=== PATIENT | female | born 1955 | race African-American/Black ===

== ENCOUNTER 2016-10-02 09:52 | Emergency (ER) | payer OTHER ==
[2016-10-02 09:58] VITALS: BP 126/74; PULSE 94; TEMP 98; BMI 26.5
--- NOTE | 2016-10-02 11:08 | PDOC ---
History of Present Illness - General Chief Complaint: Back Pain Stated Complaint: PAIN Time Seen by Provider: 10/02/16 10:34 History Source: Patient - History of Present Illness Occurred: reports: other Pain Location: reports: back Past History - Past Medical History Allergies/Adverse Reactions: Allergies Allergy/AdvReac Type Severity Reaction Status Date / Time ibuprofen Allergy Intermediate Elevated Verified 10/02/16 09:58 Blood Pressure Home Medications: Ambulatory Orders Ranitidine HCl [Zantac] 150 mg PO BID #0 tablet 08/04/13 Montelukast Na [Singulair -] 10 mg PO HS 10/25/15 Acetaminophen [Tylenol] 650 mg PO Q6H #30 tablet 10/02/16 Oxycodone HCl/Acetaminophen [Percocet 5-325 mg Tablet] 1 tab PO Q4H #15 tablet MDD 4 10/02/16 Anemia: No Asthma: No Cancer: No Cardiac Disorders: No CVA: No COPD: No CHF: No Dementia: No Diabetes: No GI Disorders: Yes (REFLUX,GASTRITIS,HIATAL HERNIA,POLYPS STOMACH,STOMACH ULCER) Disorders: No HTN: No Hypercholesterolemia: No Liver Disease: No Seizures: No Thyroid Disease: No - Surgical History Abdominal Surgery: No Appendectomy: Yes (EGD,COLONOSCOPY) Cardiac Surgery: No Cholecystectomy: No Lung Surgery: No Neurologic Surgery: No Orthopedic Surgery: No - Psycho/Social/Smoking Cessation Hx Suicidal Ideation: No Smoking Status: No Smoking History: Never smoked Number of Cigarettes Smoked Daily: 0 Information on smoking cessation initiated: No Hx Alcohol Use: No Drug/Substance Use Hx: No Substance Use Type: None Hx Substance Use Treatment: No Review of Systems - Review of Systems Constitutional: No: Chills, Fever Respiratory: Yes: Cough. No: Shortness of Breath, Hemoptysis Cardiac (ROS): No: Chest Pain Musculoskeletal: Yes: Back Pain Neurological: No: Numbness, Tingling, Weakness *Physical Exam - Vital Signs Last Vital Signs Temp Pulse Resp BP Pulse Ox 98 F 94 H 18 126/74 97 10/02/16 09:54 10/02/16 09:54 10/02/16 09:54 10/02/16 09:54 10/02/16 09:54 - Physical Exam General Appearance: Yes: Appropriately Dressed. No: Apparent Distress HEENT: positive: Normal Voice Neck: positive: Supple Respiratory/Chest: positive: Lungs Clear, Normal Breath Sounds. negative: Respiratory Distress Cardiovascular: positive: Regular Rate, S1, S2 Gastrointestinal/Abdominal: positive: Soft. negative: Tender Musculoskeletal: negative: CVA Tenderness, Vertebral Tenderness Extremity: positive: Normal Inspection Integumentary: positive: Dry, Warm Neurologic: positive: Fully Oriented, Alert, Normal Mood/Affect Medical Decision Making - Medical Decision Making 10/02/16 11:08 60 yo F, GERD, gastric ulcer, PNA, p/w lower back pain. Pt states she awoke with pain 2 days ago, located to L lower back, tight w/ an intensity of 7/10, worse w/ bending. No radiation, LE weakness, saddle anesthesia or b/b incontinence. No dysuria, hematuria, nausea, vomiting, fever or chills. No history of kidney stone. Denies trauma. Not taking anything for pain. Pt also c/o nonproductive cough 1 week. No hemoptysis, shortness of breath, fever or chills See exam Atraumatic lower back pain No red flags i.e cauda equina, infection, etc M/l MSK -pain control in ED>reassess Cough VSS Chest/lungs clear -otc cough meds as needed 10/02/16 11:48 10/02/16 12:19 Pain improved with meds. Patient stable for discharge at this time. Instructed to follow-up with PMD if pain persists *DC/Admit/Observation/Transfer Diagnosis at time of Disposition: Low back pain Qualifiers: Chronicity: acute Back pain laterality: left Sciatica presence: without sciatica Qualified Code(s): M54.5 - Low back pain - Discharge Dispostion Disposition: HOME Condition at time of disposition: Improved - Prescriptions Prescriptions: Oxycodone HCl/Acetaminophen [Percocet 5-325 mg Tablet] 1 tab PO Q4H #15 tablet MDD 4 Acetaminophen [Tylenol] 650 mg PO Q6H #30 tablet - Referrals Referrals: Chacorta Cast MD [Primary Care Provider] - - Patient Instructions Printed Discharge Instructions: Low Back Pain Additional Instructions: Take medications as directed and if your pain continues, please follow up with your PMD
[2016-10-02] MEDS ORDERED: OXYCODONE/APAP 5/325MG COMBO TABLET PO ONE (11:44)
[2016-10-02] MEDS ORDERED: OXYCODONE/APAP 5/325MG COMBO TABLET ONE (11:51)
== END 2016-10-02 12:23 | disposition home or self-care (01) ==
LOC: JERFT 09:52
DX: M54.5 Low back pain (principal); Z87.19 Personal history of other diseases of the digestive system
CPT/HCPCS: 99281-25

== ENCOUNTER 2018-07-05 11:37 | Emergency (ER) | payer OTHER ==
[2018-07-05 11:46] VITALS: BMI 21.9
[2018-07-05] MEDS ORDERED: ACETAMINOPHEN 1000 MG/100 ML VIAL (NON FORMULARY) IVPB ONE (12:01)
[2018-07-05] MEDS ORDERED: SODIUM CHLORIDE 1,000 ML IV STA (12:01)
[2018-07-05] MEDS ORDERED: ACETAMINOPHEN INJECTION 100 ML IVPB ONE (12:18)
[2018-07-05 12:22] LABS: URINE APPEARANCE CLEAR; URINE BILIRUBIN NEGATIVE (<2.0 mg/dL); URINE COLOR YELLOW; URINE GLUCOSE (UA) 2+ (NEGATIVE); URINE KETONE TRACE (NEGATIVE); URINE LEUK ESTERASE NEGATIVE (NEGATIVE); URINE NITRITE NEGATIVE (NEGATIVE); URINE PROTEIN 1+ (NEGATIVE); URINE UROBILINOGEN NEGATIVE mg/dL (0.2-1.0)
[2018-07-05 12:25] LABS: BASO % 0.6 % (0-2.0); EOS % 0.1 % (0-4.5); HEMATOCRIT 36.3 % (32.4-45.2); HEMOGLOBIN 11.7 GM/dL (10.7-15.3); LYMPH % 5.9 % (8-40); MCH 28.6 pg (25.7-33.7); MCHC 32.3 g/dl (32.0-36.0); MEAN CELL VOLUME 88.6 fl (80-96); MEAN PLT VOLUME 9.6 fl (7.5-11.1); MONO % 5.2 % (3.8-10.2); NEUT % 88.2 % (42.8-82.8); PLATELET COUNT 195 K/MM3 (134-434); RDW 13.5 % (11.6-15.6); WHITE BLOOD COUNT 13.5 K/mm3 (4.0-10.0)
[2018-07-05 12:43] LABS: ALBUMIN 3.2 g/dl (3.4-5.0); ALK PHOS 88 U/L (45-117); ANION GAP 7 MMOL/L (8-16); BILIRUBIN,TOTAL 0.8 mg/dL (0.2-1); BLOOD UREA NITROGEN 9 mg/dL (7-18); CALCIUM 8.6 mg/dL (8.5-10.1); CHLORIDE 105 mmol/L (98-107); CO2 28 mmol/L (21-32); GLUCOSE,RANDOM 185 mg/dL (74-106); POTASSIUM 3.6 mmol/L (3.5-5.1); SGOT/AST 28 U/L (15-37); SGPT/ALT 34 U/L (13-61); SODIUM 140 mmol/L (136-145); TOT PROT 7.6 g/dl (6.4-8.2)
[2018-07-05 12:54] LABS: EPI CELLS RARE /HPF (FEW); URINE MUCUS MANY
--- NOTE | 2018-07-05 13:16 | PDOC ---
History of Present Illness - General Chief Complaint: SIRS, Suspected/Possible Stated Complaint: CHEST PAIN, FEVER Time Seen by Provider: 07/05/18 11:54 History Source: Patient Exam Limitations: No Limitations - History of Present Illness Initial Comments: CHIEF COMPLAINT: 62 y/o female c/o fever and cough x 5 days. HISTORY OF PRESENT ILLNESS: The patient states for the past 5 days she's had a fever and chills with a dry cough and chest pain. She has been taking tylenol with last dose at approximately 4am this morning. She denies earache, sore throat, runny nose, n/v/d, abd pain, back pain, hematuria, dysuria, sick contacts, recent travel. Vital signs on arrival are notable for pulse of 98 and respiratory rate of 32. REVIEW OF SYSTEMS: GENERAL/CONSTITUTIONAL: Subjective fever/chills. + weakness. No weight change. HEAD, EYES, EARS, NOSE AND THROAT: No change in vision. No ear pain or discharge. No sore throat. CARDIOVASCULAR: + chest pain or shortness of breath. RESPIRATORY: +dry cough. No wheezing or hemoptysis. GASTROINTESTINAL: No nausea, vomiting, diarrhea. GENITOURINARY: No dysuria, frequency, or change in urination. MUSCULOSKELETAL: No joint or muscle swelling or pain. No neck or back pain. SKIN: No rash or easy bruising. NEUROLOGIC: No headache, vertigo, loss of consciousness, or loss of sensation. PHYSICAL EXAM: GENERAL: The patient is awake, alert, and fully oriented, non toxic but ill appearing, with laryngitis and dry cough. HEAD: Normal with no signs of trauma. ENT: Pupils equal, round and reactive to light, extraocular movements intact, sclera anicteric, conjunctiva clear. Neck supple. LUNGS: decreased breath sound right lower field. No wheezing. Normal excursion. No respiratory distress or use of accessory muscles. CV: Tachycardia with regular rate, S1/S2, no MRG. Cap refill < 2 sec. ABDOMEN: Soft, non-distended, non-tender even to deep palpation, no hepatomegaly or splenomegaly, no masses. EXTREMITIES: Normal range of motion, no edema. NEUROLOGICAL: Normal speech, normal gait. CN II-XII grossly intact. SKIN: Warm, dry, normal turgor, no rashes or lesions noted. Past History - Past Medical History Allergies/Adverse Reactions: Allergies Allergy/AdvReac Type Severity Reaction Status Date / Time ibuprofen Allergy Intermediate Elevated Verified 07/05/18 11:44 Blood Pressure Home Medications: Ambulatory Orders Ranitidine HCl [Zantac] 150 mg PO BID #0 tablet 08/04/13 Montelukast Na [Singulair -] 10 mg PO HS 10/25/15 Acetaminophen [Tylenol] 650 mg PO Q6H #30 tablet 10/02/16 Albuterol 0.083% Nebulizer Nisreen [Ventolin 0.083% Nebulizer Soln -] 1 neb NEB Q4H #25 vial 07/05/18 Albuterol Sulfate Inhaler - [Ventolin Hfa Inhaler -] 1 - 2 inh PO QID 07/05/18 Levofloxacin [Levaquin] 750 mg PO DAILY #5 tablet 07/05/18 Nebulizer [Aeroeclipse II] 1 each MC Q4H #1 each 07/05/18 Anemia: No Asthma: No Cancer: No Cardiac Disorders: No CVA: No COPD: No CHF: No Dementia: No Diabetes: No GI Disorders: Yes (REFLUX,GASTRITIS,HIATAL HERNIA,POLYPS STOMACH,STOMACH ULCER) Disorders: No HTN: No Hypercholesterolemia: No Liver Disease: No Seizures: No Thyroid Disease: No - Surgical History Abdominal Surgery: No Appendectomy: Yes (EGD,COLONOSCOPY) Cardiac Surgery: No Cholecystectomy: No Lung Surgery: No Neurologic Surgery: No Orthopedic Surgery: No - Suicide/Smoking/Psychosocial Hx Smoking Status: No Smoking History: Never smoked Number of Cigarettes Smoked Daily: 0 Hx Alcohol Use: No Drug/Substance Use Hx: No Substance Use Type: None Hx Substance Use Treatment: No *Physical Exam - Vital Signs Last Vital Signs Temp Pulse Resp BP Pulse Ox 99.4 F 98 H 32 H 121/73 98 07/05/18 12:13 07/05/18 11:45 07/05/18 11:45 07/05/18 11:45 07/05/18 11:45 Heart Score/ECG Review - ECG Intrepretation Comment:: Twelve-lead EKG was performed and reviewed by Dr. Guo. There is normal sinus rhythm with a normal rate. The axis is normal. The intervals are normal. Nonspecific ST and T wave abnormality Impression: Abnormal twelve-lead EKG ED Treatment Course - LABORATORY CBC & Chemistry Diagram: 07/05/18 12:00 07/05/18 12:00 - ADDITIONAL ORDERS Additional order review: Laboratory Results 07/05/18 07/05/18 07/05/18 12:00 12:00 12:00 Sodium 140 Potassium 3.6 Chloride 105 Carbon Dioxide 28 Anion Gap 7 L BUN 9 Creatinine 1.0 Creat Clearance w eGFR 56.18 Random Glucose 185 H Calcium 8.6 Total Bilirubin 0.8 AST 28 ALT 34 Alkaline Phosphatase 88 Creatine Kinase 340 H Creatine Kinase Index 0.6 CK-MB (CK-2) 2.3 Troponin I < 0.02 Total Protein 7.6 Albumin 3.2 L Urine Color Yellow Urine Appearance Clear Urine pH 5.0 Ur Specific Sanders 1.014 Urine Protein 1+ H Urine Glucose (UA) 2+ H Urine Ketones Trace H Urine Blood Negative Urine Nitrite Negative Urine Bilirubin Negative Urine Urobilinogen Negative Ur Leukocyte Esterase Negative 07/05/18 12:00 RBC 4.10 MCV 88.6 MCHC 32.3 RDW 13.5 MPV 9.6 Neutrophils % 88.2 H Lymphocytes % 5.9 L Monocytes % 5.2 Eosinophils % 0.1 D Basophils % 0.6 D - RADIOLOGY Radiology Studies Ordered: Category Date Time Status CHEST X-RAY PORTABLE* [RAD] Stat Radiology 07/05/18 11:54 Completed - Medications Given in the ED: ED Medications Discontinued Medications Generic Name Dose Route Start Last Admin Trade Name Freq PRN Reason Stop Dose Admin Acetaminophen 1,000 mg 07/05/18 12:01 07/05/18 12:29 Ofirmev Injection - IVPB 07/05/18 12:02 1,000 mg ONCE ONE Administration Sodium Chloride 1,000 mls @ 1,000 mls/hr 07/05/18 12:01 07/05/18 12:29 Normal Saline - IV 07/05/18 13:00 1,000 mls/hr ASDIR STA Administration Medical Decision Making - Medical Decision Making A/P: 62 y/o female with signs and symptoms of pneumonia. Also concerned for flu. Plan is as follows: 1. sepsis work up 2. Flu swab 3. IV fluids 4. IV ofirmev 5. Duoneb CXR IMPRESSION: No acute pathology. No change from prior of 06/24/18 Influenza A&B - negative Labs indicate a bacterial infection. Lactic acid normal Patient sounds and states she feels much better after duoneb treatments Patient admits she has had pneumonia in the past and this is what it feels like to her. Curb 65 1 points Low risk group: 2.7% 30-day mortality. Consider outpatient treatment. Patient's vitals have improved She is no longer tachycardic or febrile She feels better and requests to go home. She lives with her and states she can f/u with her PCP, Dr. Boudreaux on sunday Spoke with Dr. Boudreaux's nurse financial manager and she informs me that the patient can come to the office on Sunday for follow up. Discussed the case with Dr. Castaneda and she is ok with sending the patient home. Will d/c to home with rx for levaquin, nebulizer and albuterol. Instructed the patient to continue taking tylenol every 4 hours for fever if needed. Instructed her to drink plenty of fluids and get lots of rest. Informed her Dr. Boudreaux can see her on Sunday and strongly encouraged her to go. Instructed her to return to the ER immediately if she develops any worsening or concerning symptoms, including but not limited to: worsened shortness of breath, chest pain , fever that won't come down with tylenol, weakness. The patient verbalizes understanding of all instructions, has no further questions and is awaiting discharge. *DC/Admit/Observation/Transfer Diagnosis at time of Disposition: Pneumonia Qualifiers: Pneumonia type: due to unspecified organism Laterality: right Lung location: lower lobe of lung Qualified Code(s): J18.1 - Lobar pneumonia, unspecified organism - Discharge Dispostion Disposition: HOME Condition at time of disposition: Improved - Referrals Referrals: Bob Boudreaux [Non Staff, Medical] - (Go to the office on Sunday for follow up) - Patient Instructions Printed Discharge Instructions: DI for Pneumonia -- Adult Additional Instructions: Discharge Instructions: -You have pneumonia -A prescription for antibiotics has been sent to your pharmacy -You may still get fevers for the next few days; please take 650mg of tylenol every 4 hours for fever -A prescription for a nebulizer has also been sent to your pharmacy; please use this for cough -Please try not to speak. Rest your voice as much as possible -Drink plenty of fluids -Get lots of rest -Please go to Dr. Boudreaux's office on Sunday for a follow up appointment -Return to the ER immediately with any worsening or concerning symptoms including fevers that won't go down with Tylenol, difficulty breathing or worsening of chest pain - Post Discharge Activity
[2018-07-05] MEDS ORDERED: ALBUTEROL SO4 2.5/IPRATROPIUM 0.5 INH SOL 3 ML VIAL.NEB. NEB ONE ×2 (13:24→13:53)
[2018-07-05 13:35] LABS: INR 1.26 (0.83-1.09); PROTHROMBIN TIME (PATIENT) 14.9 SEC (9.7-13.0)
[2018-07-05] MEDS: ALBUTEROL SO4 2.5/IPRATROPIUM 0.5 INH SOL 3 ML VIAL.NEB. NEB SCH ×4 (13:42→15:23)
[2018-07-05 18:21] VITALS: BP 123/72; PULSE 89; TEMP 98.2
--- NOTE | 2018-07-06 10:30 | EKG ---
Test Reason : Blood Pressure : / mmHG Vent. Rate : 089 BPM Atrial Rate : 089 BPM P-R Int : 112 ms QRS Dur : 078 ms QT Int : 368 ms P-R-T Axes : 048 018 -09 degrees QTc Int : 447 ms NORMAL SINUS RHYTHM LOW VOLTAGE QRS NONSPECIFIC ST AND T WAVE ABNORMALITY ABNORMAL ECG NO PREVIOUS ECGS AVAILABLE Confirmed by GEORGE BROWN MD ([id number]) on 07/06/2018 10:30:05 AM Referred By: Confirmed By:GEORGE BROWN MD
== END 2018-07-05 18:15 | disposition home or self-care (01) ==
LOC: JER 11:37
PROC: 3E0F7GC Introduction of Other Therapeutic Substance into Respiratory Tract, Via Natural or Artificial Opening (ICD-10-PCS; principal; 2018-07-05)
PROC: 3E0F7GC Introduction of Other Therapeutic Substance into Respiratory Tract, Via Natural or Artificial Opening (ICD-10-PCS; 2018-07-05)
PROC: 3E0F7GC Introduction of Other Therapeutic Substance into Respiratory Tract, Via Natural or Artificial Opening (ICD-10-PCS; 2018-07-05)
PROC: 3E0F7GC Introduction of Other Therapeutic Substance into Respiratory Tract, Via Natural or Artificial Opening (ICD-10-PCS; 2018-07-05)
DX: J18.1 Lobar pneumonia, unspecified organism (principal)
CPT/HCPCS: 36415; 71045-TC-FY; 71046-TC-FY; 80053; 81003; 81015; 82550; 82553; 83605; 84484; 85025; 85610; 87040; 87086; 87804; 93005; 93010; 94640; 96365; 96375; 99284-25; J0131; J7030; J7620

== ENCOUNTER 2019-11-26 14:03 | Emergency (ER) | payer OTHER ==
[2019-11-26 14:30] VITALS: BMI 21.0
[2019-11-26] MEDS ORDERED: SODIUM CHLORIDE 1,000 ML IV STA (14:40)
--- NOTE | 2019-11-26 14:43 | PDOC ---
History of Present Illness - General Chief Complaint: Weakness Stated Complaint: R/O PNE Time Seen by Provider: 11/26/19 14:22 History Source: Patient Exam Limitations: No Limitations - History of Present Illness Initial Comments: Javed Acuna is a 64 yo F w a hx of gastritis, childhood asthma, GERD, abdominal hernia, and PUD who presents to the [facility] er sent in by her PCP to have pneumonia ruled out. She has been experiencing a dry cough over the past few days which has been non-productive. The patient states she has had on and off fevers and chills for the past few days. Last night she took acetaminophen for her fever but has not taken any antipyretics today. She also endorses a right sided headache which started yesterday. Lastly, the patient endorses worsening shortness of breath with exertion over the past week. She is particularly concerned because performing any physical activity over the past week, especially walking up stairs, is extremely tiresome for her. This dyspnea and fatigue on exertion is what prompted the patient to come to the ER. She denies difficulty lying flat at night and denies having any leg swelling. She denies having any chest pain and denies a productive cough. PCP: Chacorta Cast PSH: Appendectomy Social Hx: Denies smoking, drinking, or other substance usage Allergies: NSAIDs Past History - Past Medical History Allergies/Adverse Reactions: Allergies Allergy/AdvReac Type Severity Reaction Status Date / Time ibuprofen Allergy Intermediate Elevated Verified 11/26/19 14:26 Blood Pressure Home Medications: Ambulatory Orders Ranitidine HCl [Zantac] 150 mg PO BID #0 tablet 08/04/13 Montelukast Na [Singulair -] 10 mg PO HS 10/25/15 Acetaminophen [Tylenol] 650 mg PO Q6H #30 tablet 10/02/16 Albuterol 0.083% Nebulizer Nisreen [Ventolin 0.083% Nebulizer Soln -] 1 neb NEB Q4H #25 vial 07/05/18 Albuterol Sulfate Inhaler - [Ventolin Hfa Inhaler -] 1 - 2 inh PO QID 07/05/18 Levofloxacin [Levaquin] 750 mg PO DAILY #5 tablet 07/05/18 Nebulizer [Aeroeclipse II] 1 each MC Q4H #1 each 07/05/18 Anemia: No Asthma: No Cancer: No Cardiac Disorders: No CVA: No COPD: No CHF: No Dementia: No Diabetes: No GI Disorders: Yes (REFLUX,GASTRITIS,HIATAL HERNIA,POLYPS STOMACH,STOMACH ULCER) Disorders: No HTN: No Hypercholesterolemia: No Liver Disease: No Seizures: No Thyroid Disease: No - Surgical History Abdominal Surgery: No Appendectomy: Yes (EGD,COLONOSCOPY) Cardiac Surgery: No Cholecystectomy: No Lung Surgery: No Neurologic Surgery: No Orthopedic Surgery: No - Psycho Social/Smoking Cessation Hx Smoking Status: No Smoking History: Never smoked Have you smoked in the past 12 months: No Number of Cigarettes Smoked Daily: 0 Information on smoking cessation initiated: No Hx Alcohol Use: No Drug/Substance Use Hx: No Substance Use Type: None Hx Substance Use Treatment: No Review of Systems - Review of Systems Able to Perform ROS?: Yes Comments:: CONSTITUTIONAL: Present: fatigue Absent: fever, no chills EYES: Absent: visual changes ENT: Absent: ear pain, no sore throat CARDIOVASCULAR: Absent: chest pain, no palpitations RESPIRATORY: Present: SOB Absent: cough GI: Absent: abdominal pain, no nausea, no vomiting, no constipation, no diarrhea GENITOURINARY: Absent: dysuria, no frequency, no hematuria MUSKULOSKELETAL: Absent: back pain, no arthralgia, no myalgia SKIN: Absent: rash NEURO: Absent: headache *Physical Exam - Vital Signs Last Vital Signs Temp Pulse Resp BP Pulse Ox 98.1 F 55 L 18 136/44 L 99 11/26/19 14:26 11/26/19 14:26 11/26/19 14:26 11/26/19 14:26 11/26/19 14:26 - Physical Exam GENERAL: Well-appearing, well-nourished. No apparent distress. HEENT: Normocephalic, atraumatic. PERRL, EOM intact. CARDIOVASCULAR: Normal S1, S2. Regular rate and rhythm. PULMONARY: Bi-basilar crackles. No evidence of respiratory distress. ABDOMEN: Soft, non-distended, non-tender. EXTREMITIES: Normal ROM in all four extremities. No gross deformities. SKIN: Warm, dry. No rash NEUROLOGICAL: No focal neurological deficits. Heart Score/ECG Review - History History: Slightly suspicious - Electrocardiogram EKG: Normal - Age Age: 45-65 - Risk Factors Based on the list above the patient has:: No risk factors known - Troponin Troponin: </= normal limit - Score Heart Score - Total: 1 ED Treatment Course - LABORATORY CBC & Chemistry Diagram: 11/26/19 15:30 11/26/19 15:30 - RADIOLOGY Radiology Studies Ordered: Category Date Time Status CHEST PA & LAT [RAD] Stat Radiology 11/26/19 14:40 Ordered Medical Decision Making - Medical Decision Making Javed Acuna is a 64 yo F w a hx of gastritis, childhood asthma, GERD, abdominal hernia, and PUD who presents to the [facility] er sent in by her PCP to have pneumonia ruled out. She has been experiencing a dry cough over the past few days which has been non-productive. The patient states she has had on and off fevers and chills for the past few days. Last night she took acetaminophen for her fever but has not taken any antipyretics today. She also endorses a right sided headache which started yesterday which woke the patient up from sleep. She states this headache is different than her standard headaches. Lastly, the patient endorses worsening shortness of breath with exertion over the past week. She is particularly concerned because performing any physical activity over the past week, especially walking up stairs, is extremely tiresome for her. This dyspnea and fatigue on exertion is what prompted the patient to come to the ER. She denies difficulty lying flat at night and denies having any leg swelling. She denies having any chest pain and denies a productive cough. Vital Signs Temp Pulse Resp BP Pulse Ox 98.1 F 55 L 18 136/44 L 99 11/26/19 14:26 11/26/19 14:26 11/26/19 14:26 11/26/19 14:26 11/26/19 14:26 DDx IBNLT: Heart failure, ACS, electrolyte/metabolic disturbance, PNA, migraine, SAH Plan: Labs, EKG, CXR, CT, re-assess EKG: Sinus bradycardia rate of 46, narrow complexes, normal axis, no hypertrophy, no ST elevations or depressions, Qtc 385, VT 96 Labs: Mildly Elevated BNP POCUS Heart: There is an elevated EPSS of .8 mm consistent with borderline EF. There is a mildly decreased EF and global wall motion hypokinesis. There is no focal wall motion abnormality. Normal LV/RV ratio. Given the large BP differential it is possible this patient has aortic regurgitation which would make the EPSS reading less reliable. Lungs: There are very few B-lines lower lung anderson. No pleural effusions. Overall mildly if at all congested. IVC: Flat and collapsible with each respiration CXR: No acute pathology Head CT: No acute pathology Re-assessment: Patient feels better after symptomatic care. Disposition: Home with PCP, cards, and pulm FU - Strict return precautions. Discharge - Discharge Information Problems reviewed: Yes Clinical Impression/Diagnosis: SOB (shortness of breath) Condition: Improved Disposition: HOME - Admission No - Follow up/Referral Referrals: Chacorta Cast MD [Staff Physician] - Leonel Guzman MD [Staff Physician] - Jonn Lee MD, MD [Staff Physician] - - Patient Discharge Instructions Patient Printed Discharge Instructions: DI for Shortness of Breath Additional Instructions: You came into the ER to make sure you do not have pneumonia. We did a chest x- ray which did not show any signs of pneumonia. You had a small amount of fluid in your lungs which is something you must follow up about with 3 doctors that we are referring you to as an outpatient 1) Tailer In: Dr. Guzman 2) Pulmonary doctor: Jonn Lee 3) Primary doctor: Chacorta Cast Please schedule follow up appointments with all three of these doctors in the next week. Come back to the ER immediately if you are not able to make outpatient appointments with these doctors. If you have any worsening of your chest pain, feel too short of breath, have a fever, or have any other new or worsening concerns come back to the ER for further evaluation as this could mean something dangerous is happening and you might benefit from being hospitalized. Thank you for coming to the [facility] ER. We hope you feel better soon! Print Language: FRISIAN - Post Discharge Activity
[2019-11-26] MEDS ORDERED: ACETAMINOPHEN 1000 MG/100 ML VIAL (NON FORMULARY) IVPB ONE (15:21)
[2019-11-26] MEDS ORDERED: ACETAMINOPHEN INJECTION 100 ML IVPB ONE (15:36)
[2019-11-26 15:42] LABS: EOS % 0.8 % (0-4.5); HEMATOCRIT 38.8 % (32.4-45.2); HEMOGLOBIN 12.5 GM/dL (10.7-15.3); LYMPH % 33.2 % (8-40); MCH 28.9 pg (25.7-33.7); MCHC 32.2 g/dl (32.0-36.0); MEAN CELL VOLUME 89.8 fl (80-96); MEAN PLT VOLUME 9.5 fl (7.5-11.1); MONO % 8.2 % (3.8-10.2); NEUT % 56.8 % (42.8-82.8); PLATELET COUNT 200 K/MM3 (134-434); RBC 4.32 M/mm3 (3.60-5.2); RDW 13.4 % (11.6-15.6); WHITE BLOOD COUNT 5.1 K/mm3 (4.0-10.0)
[2019-11-26 15:57] LABS: INR 1.08 (0.83-1.09); PROTHROMBIN TIME (PATIENT) 12.8 SEC (9.7-13.0)
[2019-11-26] MEDS ORDERED: LACTATED RINGERS SOLUTION 1,000 ML/1,000 ML INFUS.BAG IV STA (15:57)
[2019-11-26 16:14] LABS: EPI CELLS 4.8 /HPF (0-5/HPF); HYALINE CASTS 1 /lpf (0-8); PH,URINE 8.5 (5.0-8.0); URINE APPEARANCE CLEAR; URINE BACTERIA 71.6 /hpf (NEGATIVE); URINE BILIRUBIN NEGATIVE (NEGATIVE); URINE COLOR YELLOW; URINE GLUCOSE (UA) NEGATIVE (NEGATIVE); URINE KETONE NEGATIVE (NEGATIVE); URINE LEUK ESTERASE 1+ (NEGATIVE); URINE NITRITE NEGATIVE (NEGATIVE); URINE PROTEIN NEGATIVE (NEGATIVE); URINE RBC 1 /hpf (0-4); URINE UROBILINOGEN 0.2 mg/dL (0.2-1.0); URINE WBC 5 /hpf (0-5)
[2019-11-26 16:19] LABS: ALBUMIN 3.5 g/dl (3.4-5.0); ALK PHOS 92 U/L (45-117); ANION GAP 5 MMOL/L (8-16); BILIRUBIN,TOTAL 0.4 mg/dL (0.2-1); CHLORIDE 108 mmol/L (98-107); CO2 30 mmol/L (21-32); CREATININE 0.9 mg/dL (0.55-1.3); GLUCOSE,RANDOM 70 mg/dL (74-106); POTASSIUM 4.2 mmol/L (3.5-5.1); SGOT/AST 28 U/L (15-37); SGPT/ALT 32 U/L (13-61); SODIUM 143 mmol/L (136-145); TOT PROT 7.2 g/dl (6.4-8.2)
[2019-11-26] MEDS ORDERED: ALBUTEROL SO4 0.083% IH SOL 2.5 MG/3 ML VIAL.NEB. NEB ONE ×2 (16:49→17:18)
[2019-11-26] MEDS ORDERED: AZITHROMYCIN 250 MG TABLET PO ONE (16:50)
--- NOTE | 2019-11-26 16:50 | PDOC ---
Documentation entered by Michelle Manjarrez SCRIBE, acting as scribe for Chaim Estrada MD. Chaim Estrada MD: This documentation has been prepared by the Loki fragoso Adrianna, SCRIBE, under my direction and personally reviewed by me in its entirety. I confirm that the documentation accurately reflects all work, treatment, procedures, and medical decision making performed by me. Attending Attestation - Resident Resident Name: Norberto Omer - ED Attending Attestation I have performed the following: I have examined & evaluated the patient, The case was reviewed & discussed with the resident, I agree w/resident's findings & plan, Exceptions are as noted - HPI HPI: The patient is a 64 year old female, with a significant PMH of gastritis, childhood asthma, GERD, abdominal hernia, and PUD, presents with cough for a few days. Patient complains of dry cough, with progressively worsening SOB, dyspnea on exertion, and orthopnea. She endorses a right sided KOROMA, subjective fever, and intermittent chills. Patient was sent by her PCP to the ED to rule out pneumonia. Allergies: ibuprofen Surgical History: appendectomy Social History: No toxic habits PCP: Chacorta Cast - Physicial Exam PE: 11/26/19 16:40 EXAMINATION CONSTITUTIONAL: Well-appearing; well-nourished; in no apparent distress HEAD: Normocephalic; atraumatic EYES: PERRL; EOM intact ENMT: External appears normal; normal oropharynx NECK: Supple; non-tender; no cervical lymphadenopathy CARD: Normal S1, S2; no murmurs, rubs, or gallops RESP: Normal chest excursion with respiration; Mild crackles at the bases bilaterally ABD: Soft, non-distended; non-tender; no palpable organomegaly, no palpable hernias EXT: Normal ROM in all four extremities; 1+ pitting edema of lower extremities bilaterally;non-tender to palpation; distal pulses intact SKIN: Warm, dry, no rash NEURO: No focal neurological deficiencies. - Medical Decision Making 11/26/19 16:49 distended she has constricted 64-year-old female presents with cough, abdomen with cough, and congestion shortness of breath, mild headache and generalized weakness. Patient referred to the ER by Dr. Chacorta Chambers for rule out pneumonia. In the ER, patient is awake and alert, nontoxic-appearing. Chest x- ray reveals no evidence of cardiomegaly or significant effusion. CBC/CMP within normal limits. BNP is 199. I suspect atypical pneumonia versus viral infection. Will administer albuterol, will discharge with albuterol MDI and Zithromax with outpatient follow-up.
[2019-11-26] MEDS ORDERED: METOCLOPRAMIDE HCL INJECTION 10 MG/2 ML VIAL IVPUSH ONE (17:01)
[2019-11-26] MEDS ORDERED: AZITHROMYCIN IVPB 500 MG/250 ML BAG IVPB ONE (17:18)
[2019-11-26] MEDS ORDERED: METOCLOPRAMIDE HCL INJECTION 10 MG/2 ML VIAL ONE (17:18)
[2019-11-26] MEDS ORDERED: AZITHROMYCIN 250 MG TABLET ONE (17:19)
[2019-11-26 18:45] VITALS: BP 137/65; PULSE 61; TEMP 97.9
--- NOTE | 2019-11-27 13:58 | EKG ---
Test Reason : Blood Pressure : / mmHG Vent. Rate : 046 BPM Atrial Rate : 046 BPM P-R Int : 096 ms QRS Dur : 080 ms QT Int : 440 ms P-R-T Axes : 036 012 039 degrees QTc Int : 385 ms SINUS BRADYCARDIA WITH SHORT ME CANNOT RULE OUT ANTERIOR INFARCT , AGE UNDETERMINED ABNORMAL ECG WHEN COMPARED WITH ECG OF 05-JUL-2018 11:42, VENT. RATE HAS DECREASED BY 43 BPM QT HAS SHORTENED Confirmed by NANDINI HAGEN, JIGAR ([id number]) on 11/27/2019 1:58:02 PM Referred By: Confirmed By:JIGAR DELATORRE MD
== END 2019-11-26 18:47 | disposition home or self-care (01) ==
LOC: JER 14:03
PROC: 3E033NZ Introduction of Analgesics, Hypnotics, Sedatives into Peripheral Vein, Percutaneous Approach (ICD-10-PCS; principal; 2019-11-26)
PROC: 3E033GC Introduction of Other Therapeutic Substance into Peripheral Vein, Percutaneous Approach (ICD-10-PCS; 2019-11-26)
DX: R06.02 Shortness of breath (principal); K21.9 Gastro-esophageal reflux disease without esophagitis; J45.909 Unspecified asthma, uncomplicated; K27.9 Peptic ulcer, site unspecified, unspecified as acute or chronic, without hemorrhage or perforation; Z88.8 Allergy status to other drugs, medicaments and biological substances
CPT/HCPCS: 36415; 70450-TC; 71046-TC-FY; 80053; 81003; 83880; 84484; 85025; 85610; 87086; 93005; 93010; 99285-25; J0131; J7030